=== PATIENT | female | born 1980 | race Two or more races ===

== ENCOUNTER 2024-05-15 07:16 | Outpatient (CLI) | payer OTHER | END 2024-05-15 07:22 | disposition home or self-care (01) | LOC: MRI 07:16 | DX: E11.9 Type 2 diabetes mellitus without complications (principal); D50.0 Iron deficiency anemia secondary to blood loss (chronic); K31.84 Gastroparesis; B96.81 Helicobacter pylori [H. pylori] as the cause of diseases classified elsewhere; N20.0 Calculus of kidney | CPT/HCPCS: 72197; 74183 ==